=== PATIENT | male | born 2000 | race Caucasian/White ===

== ENCOUNTER 2022-09-15 06:30 | Emergency (ER) | payer SELFPAY ==
[~2022-09-15] VITALS: Ht 182.9 cm; Wt 90.0 kg
[2022-09-15 07:41] VITALS: BP 124/79
[2022-09-15 07:45] VITALS: BP 118/80
[2022-09-15 08:33] LABS: BASO% 0.5 % (0-3); EOS% 8.4 % (0-8); HEMATOCRIT 45.9 % (39.0-50.0); HEMOGLOBIN 14.8 g/dl (14.0-18.0); IMMATURE GRANULOCYTES 0.1 % (0.0-5.0); LYMPH% 30.9 % (15-41); MEAN CELL VOLUME 90.9 fL CALC (80.0-100.0); MEAN CORPUSCULAR HGB 29.3 pG CALC (26.0-32.0); MEAN CORPUSCULAR HGB CONC 32.2 g/dL CAL (32.0-36.0); MONO% 10.7 % (2-13); NEUT# 3.91 thou/uL (1.82-7.42); NEUT% 49.4 % (42-76); RED BLOOD COUNT 5.05 mill/uL (4.70-6.10); RED CELL DISTRI WIDTH 12.7 % (11.5-15.5)
[2022-09-15 08:46] LABS: ALBUMIN 4.5 g/dL (3.2-5.0); ALKALINE PHOSPHATASE 77 u/l (38-126); ANION GAP 9 (6-22 (CALC)); BUN 7 mg/dL (9-20); BUN/CREATININE RATIO 8 (12-20 (CALC)); CARBON DIOXIDE 27 mmol/l (22-30); CHLORIDE 107 mmol/l (95-108); CREATININE 0.8 mg/dL (0.7-1.3); GFR FOR AFR.AMER. > 60 ML/MIN (>=60 (CALC)); GFR OTHER RACES > 60 ML/MIN (>=60 (CALC)); LIPASE 261 u/l (23-300); SGOT/AST 25 u/l (17-59); SODIUM 138 mmol/l (137-146); TOTAL PROTEIN 7.3 g/dL (6.3-8.2)
[2022-09-15 08:49] LABS: POTASSIUM 5.3 mmol/l (3.5-5.1)
[2022-09-15 09:01] VITALS: BP 106/75
[2022-09-15 09:07] LABS: URINE BILIRUBIN - DIPSTICK NEGATIVE (NEGATIVE); URINE BLOOD DIPSTICK NEGATIVE (NEGATIVE); URINE COLOR YELLOW; URINE GLUCOSE - DIPSTICK NEGATIVE (NEGATIVE); URINE KETONE NEGATIVE (NEGATIVE); URINE LEUK ESTERASE NEGATIVE (NEGATIVE); URINE NITRITE - DIPSTICK NEGATIVE (Negative); URINE PH 6.5 (4.5-8.0); URINE PROTEIN - DIPSTICK NEGATIVE (NEG-TRACE); URINE UROBILINOGEN - DIPSTICK 0.2 E.U./dL (0.2)
[2022-09-15 09:18] VITALS: BP 117/70
[2022-09-15] MEDS ORDERED: PROTONIX40 M2 PO (09:24)
[2022-09-15] MEDS ORDERED: ZOFRAN4 MG/TAB PO (09:24)
[2022-09-15 09:46] VITALS: BP 134/66
== END 2022-09-15 09:55 | disposition home or self-care (01) | DRG 392 ==
LOC: ED 06:30
PROVIDERS: Family Medicine
DX: R10.9 Unspecified abdominal pain (principal); R11.2 Nausea with vomiting, unspecified; Z87.11 Personal history of peptic ulcer disease

== ENCOUNTER 2022-11-25 17:54 | Emergency (ER) | payer SELFPAY ==
[~2022-11-25] VITALS: Ht 177.8 cm; Wt 94.8 kg
[~2022-11-25 17:54] MED LIST: PROTONIX40 M2 PO; ZOFRAN4 MG/TAB PO
[2022-11-25 18:02] VITALS: BP 137/82
[2022-11-25 18:16] VITALS: BP 125/75
[2022-11-25] MEDS ORDERED: AMOXICILLIN500 M2 PO (18:18)
[2022-11-25] MEDS ORDERED: PREDNISONE50 MG PO (18:18)
[2022-11-25 18:31] VITALS: BP 125/75
== END 2022-11-25 18:36 | disposition home or self-care (01) | DRG 153 ==
LOC: ED 17:54
DX: J06.9 Acute upper respiratory infection, unspecified (principal)

== ENCOUNTER 2023-02-09 06:36 | Emergency (ER) | payer SELFPAY ==
[2023-02-09] VITALS (10 sets, daily range): BP systolic 99–164; BP diastolic 68–147
[~2023-02-09] VITALS: Ht 180.3 cm; Wt 94.0 kg
[~2023-02-09 06:36] MED LIST changes: +AMOXICILLIN500 M2 PO; +PREDNISONE50 MG PO
[2023-02-09 07:53] LABS: ALBUMIN 4.3 g/dL (3.2-5.0); ALKALINE PHOSPHATASE 65 u/l (38-126); AMYLASE 66 u/l (30-110); ANION GAP 12 (6-22 (CALC)); BUN 8 mg/dL (9-20); BUN/CREATININE RATIO 12 (12-20 (CALC)); CARBON DIOXIDE 24 mmol/l (22-30); CHLORIDE 107 mmol/l (95-108); CREATININE 0.7 mg/dL (0.7-1.3); GFR FOR AFR.AMER. > 60 ML/MIN (>=60 (CALC)); GFR OTHER RACES > 60 ML/MIN (>=60 (CALC)); POTASSIUM 4.5 mmol/l (3.5-5.1); SGOT/AST 23 u/l (17-59); SODIUM 139 mmol/l (137-146); TOTAL PROTEIN 7.3 g/dL (6.3-8.2)
[2023-02-09 08:11] LABS: BILIRUBIN, TOTAL 0.2 mg/dL (0.2-1.3)
[2023-02-09] MEDS ORDERED: PROTONIX40 MG PO (08:53)
== END 2023-02-09 09:21 | disposition home or self-care (01) | DRG 392 ==
LOC: ED 06:36
PROVIDERS: Family Medicine
DX: K29.70 Gastritis, unspecified, without bleeding (principal); Z87.11 Personal history of peptic ulcer disease; Z91.190 Patient's noncompliance with other medical treatment and regimen due to financial hardship
CPT/HCPCS: S0164

== ENCOUNTER 2023-08-08 21:04 | Emergency (ER) | payer SELFPAY ==
[~2023-08-08] VITALS: Ht 180.3 cm; Wt 94.5 kg
[~2023-08-08 21:04] MED LIST changes: +PROTONIX40 MG PO
[2023-08-08 21:25] VITALS: BP 117/76
[2023-08-08 21:30] VITALS: BP 118/64
[2023-08-08 21:48] LABS: BASO% 0.1 % (0-3); EOS% 0.8 % (0-8); HEMATOCRIT 41.3 % (39.0-50.0); HEMOGLOBIN 13.9 g/dl (14.0-18.0); IMMATURE GRANULOCYTES 0.1 % (0.0-5.0); MEAN CELL VOLUME 88.8 fL CALC (80.0-100.0); MEAN CORPUSCULAR HGB 29.9 pG CALC (26.0-32.0); MEAN CORPUSCULAR HGB CONC 33.7 g/dL CAL (32.0-36.0); MONO% 5.2 % (2-13); NEUT# 12.25 thou/uL (1.82-7.42); NEUT% 83.8 % (42-76); RED BLOOD COUNT 4.65 mill/uL (4.70-6.10)
[2023-08-08 22:26] LABS: ALBUMIN 4.8 g/dL (3.2-5.0); ALKALINE PHOSPHATASE 72 u/l (38-126); ANION GAP 11 (6-22 (CALC)); BILIRUBIN, TOTAL 0.3 mg/dL (0.2-1.3); BUN 10 mg/dL (9-20); BUN/CREATININE RATIO 15 (12-20 (CALC)); CARBON DIOXIDE 27 mmol/l (22-30); CHLORIDE 108 mmol/l (95-108); CREATININE 0.7 mg/dL (0.7-1.3); GFR FOR AFR.AMER. > 60 ML/MIN (>=60 (CALC)); GFR OTHER RACES > 60 ML/MIN (>=60 (CALC)); LIPASE 85 u/l (23-300); SGOT/AST 29 u/l (17-59); SODIUM 142 mmol/l (137-146); TOTAL PROTEIN 7.4 g/dL (6.3-8.2)
[2023-08-09 00:46] LABS: URINE BILIRUBIN - DIPSTICK Negative (NEGATIVE); URINE BLOOD DIPSTICK Negative (NEGATIVE); URINE GLUCOSE - DIPSTICK Negative (NEGATIVE); URINE KETONE Negative (NEGATIVE); URINE LEUK ESTERASE Negative (NEGATIVE); URINE NITRITE - DIPSTICK Negative (Negative); URINE PH 8.5 (4.5-8.0); URINE PROTEIN - DIPSTICK Negative (NEG-TRACE)
[2023-08-09 00:50] LABS: URINE COLOR Yellow
[2023-08-09] MEDS ORDERED: ERYTHROMYCIN250 M2 PO (03:42)
[2023-08-09 03:49] VITALS: BP 118/64
== END 2023-08-09 04:00 | disposition home or self-care (01) | DRG 392 ==
LOC: ED 21:04
PROVIDERS: Family Medicine
DX: K31.84 Gastroparesis (principal); Z87.11 Personal history of peptic ulcer disease

== ENCOUNTER 2024-01-12 06:24 | Emergency (ER) | payer BC ==
[~2024-01-12] VITALS: Ht 177.8 cm; Wt 90.0 kg
[~2024-01-12 06:24] MED LIST changes: +ERYTHROMYCIN250 M2 PO
[2024-01-12] MEDS ORDERED: ONDANSETRON 4 MG/TAB ODT PO ONE (06:50)
[2024-01-12 08:05] VITALS: BP 134/95
== END 2024-01-12 08:05 | disposition home or self-care (01) | DRG 392 ==
LOC: ED 06:24
DX: R11.2 Nausea with vomiting, unspecified (principal); R52 Pain, unspecified; Z20.822 Contact with and (suspected) exposure to COVID-19

== ENCOUNTER 2024-01-15 19:10 | Emergency (ER) | payer BC ==
[~2024-01-15] VITALS: Ht 177.8 cm; Wt 95.0 kg
[2024-01-15 20:10] VITALS: BP 132/73
[2024-01-15] MEDS ORDERED: IBUPROFEN 600 MG/TAB PO ONE (20:15)
[2024-01-15] MEDS ORDERED: ONDANSETRON 4 MG/TAB ODT PO ONE (20:15)
[2024-01-15] MEDS ORDERED: ACETAMINOPHEN 500 MG TAB PO ONE (20:15)
[2024-01-15 21:06] LABS: BASO% 0.1 % (0-3); EOS% 1.9 % (0-8); HEMATOCRIT 43.2 % (39.0-50.0); HEMOGLOBIN 14.2 g/dl (14.0-18.0); IMMATURE GRANULOCYTES 0.3 % (0.0-5.0); LYMPH% 6.6 % (15-41); MEAN CELL VOLUME 89.6 fL CALC (80.0-100.0); MEAN CORPUSCULAR HGB 29.5 pG CALC (26.0-32.0); MEAN CORPUSCULAR HGB CONC 32.9 g/dL CAL (32.0-36.0); MONO% 16.9 % (2-13); NEUT# 5.4 thou/uL (1.82-7.42); NEUT% 74.2 % (42-76); RED BLOOD COUNT 4.82 mill/uL (4.70-6.10)
[2024-01-15 21:36] VITALS: BP 132/73
== END 2024-01-15 21:39 | disposition home or self-care (01) | DRG 179 ==
LOC: ED 19:10
PROVIDERS: Family Medicine
DX: U07.1 COVID-19 (principal); R50.9 Fever, unspecified; M79.10 Myalgia, unspecified site; R09.89 Other specified symptoms and signs involving the circulatory and respiratory systems; R52 Pain, unspecified

== ENCOUNTER 2024-01-25 06:52 | Emergency (ER) | payer OTHER, BC ==
[~2024-01-25] VITALS: Ht 177.8 cm; Wt 95.0 kg
[2024-01-25 06:56] VITALS: BP 150/122
[2024-01-25 06:58] VITALS: BP 134/79
[2024-01-25 07:00] VITALS: BP 119/92
[2024-01-25] MEDS ORDERED: LIDOcaine HCl 1% (Local Anesth.) 20 ML VIAL STI STA (07:02)
[2024-01-25] MEDS ORDERED: POVIDONE IODINE 0.5 OZ/BTL TOP ONE (07:05)
[2024-01-25] MEDS ORDERED: Diph, Acellular Pertussis, Tet 0.5 ML/VIAL (Tdap) SDV IM ONE (07:05)
[2024-01-25] MEDS ORDERED: CEPHALEXIN500 M1 PO (07:08)
== END 2024-01-25 07:41 | disposition home or self-care (01) | DRG 605 ==
LOC: ED 06:52
PROC: 0HQGXZZ Repair Left Hand Skin, External Approach (ICD-10-PCS; principal; 2024-01-25)
DX: S61.412A Laceration without foreign body of left hand, initial encounter (principal); W26.9XXA Contact with unspecified sharp object(s), initial encounter; Y93.89 Activity, other specified; Y99.0 Civilian activity done for income or pay

== ENCOUNTER 2024-06-27 03:53 | Emergency (ER) | payer BC ==
[~2024-06-27] VITALS: Ht 177.8 cm; Wt 97.0 kg
[2024-06-27] VITALS (9 sets, daily range): BP systolic 115–144; BP diastolic 65–81
[~2024-06-27 03:53] MED LIST changes: +CEPHALEXIN500 M1 PO
[2024-06-27] MEDS ORDERED: KETOROLAC TROMETHAMINE 30 MG/ML SDV IV ONE (04:15)
[2024-06-27] MEDS ORDERED: SODIUM CHLORIDE 0.9% 1,000 ML IV ONE (04:15)
[2024-06-27] MEDS ORDERED: DICYCLOMINE HCL 20 MG/2 ML VIAL IM ONE (04:15)
[2024-06-27] MEDS ORDERED: FAMOTIDINE 10MG/ML 2ML SDV IV ONE (04:15)
[2024-06-27] MEDS ORDERED: ONDANSETRON HCl 4 MG/2 ML SDV IV ONE (04:15)
[2024-06-27 04:40] LABS: BASO% 0.4 % (0-3); EOS% 3.6 % (0-8); HEMATOCRIT 42.1 % (39.0-50.0); IMMATURE GRANULOCYTES 0.1 % (0.0-5.0); MEAN CELL VOLUME 87.5 fL CALC (80.0-100.0); MEAN CORPUSCULAR HGB 29.1 pG CALC (26.0-32.0); MEAN CORPUSCULAR HGB CONC 33.3 g/dL CAL (32.0-36.0); MONO% 7.9 % (2-13); NEUT# 2.52 thou/uL (1.82-7.42); NEUT% 29.8 % (42-76); RED BLOOD COUNT 4.81 mill/uL (4.70-6.10)
[2024-06-27 04:54] LABS: ALBUMIN 4.3 g/dL (3.2-5.0); BILIRUBIN, TOTAL 0.5 mg/dL (0.2-1.3); CREATININE 0.7 mg/dL (0.7-1.3); POTASSIUM 3.5 mmol/l (3.5-5.1); TOTAL PROTEIN 7.3 g/dL (6.3-8.2)
[2024-06-27 05:15] LABS: LYMPH% 58.2 % (15-41)
[2024-06-27] MEDS ORDERED: STOMACH MED (05:19)
[2024-06-27] MEDS ORDERED: IPRATROPIUM-Albuterol 0.5MG-2.5MG/3 ML NEB ONE ×2 (07:20)
[2024-06-27] MEDS ORDERED: VENTOLIN HFA108 MCG PO (07:54)
== END 2024-06-27 08:40 | disposition home or self-care (01) | DRG 392 ==
LOC: ED 03:53
PROVIDERS: Emergency Medicine
DX: R10.9 Unspecified abdominal pain (principal); R11.2 Nausea with vomiting, unspecified; J06.9 Acute upper respiratory infection, unspecified

== ENCOUNTER 2024-07-12 10:00 | Emergency (ER) | payer BC ==
[2024-07-12] VITALS (8 sets, daily range): BP systolic 111–132; BP diastolic 61–87
[~2024-07-12] VITALS: Ht 177.8 cm; Wt 99.4 kg
[~2024-07-12 10:00] MED LIST changes: +STOMACH MED; +VENTOLIN HFA108 MCG PO
[2024-07-12 10:37] LABS: HEMATOCRIT 42.6 % (39.0-50.0); HEMOGLOBIN 13.7 g/dl (14.0-18.0); IMMATURE GRANULOCYTES 0.2 % (0.0-5.0); MEAN CELL VOLUME 90.3 fL CALC (80.0-100.0); MEAN CORPUSCULAR HGB CONC 32.2 g/dL CAL (32.0-36.0); RED BLOOD COUNT 4.72 mill/uL (4.70-6.10); RED CELL DISTRI WIDTH 13.3 % (11.5-15.5)
[2024-07-12 10:38] LABS: MANUAL DIFFERENTIAL YES; PLATELET COUNT 226 thou/uL (130-400)
[2024-07-12 10:51] LABS: ALBUMIN 4.6 g/dL (3.2-5.0); BILIRUBIN, TOTAL 0.5 mg/dL (0.2-1.3); CREATININE 0.8 mg/dL (0.7-1.3); POTASSIUM 4.2 mmol/l (3.5-5.1); TOTAL PROTEIN 8.1 g/dL (6.3-8.2)
[2024-07-12] MEDS ORDERED: SODIUM CHLORIDE 0.9% 1,000 ML IV ONE (11:05)
[2024-07-12] MEDS ORDERED: Pantoprazole Sodium 40 MG VIAL (Protonix) IV ONE (11:05)
[2024-07-12] MEDS ORDERED: ONDANSETRON HCl 4 MG/2 ML SDV IV ONE (11:05)
[2024-07-12 11:08] LABS: BAND 2 % (0-8)
[2024-07-12 12:48] LABS: URINE BILIRUBIN - DIPSTICK Negative (NEGATIVE); URINE BLOOD DIPSTICK Negative (NEGATIVE); URINE COLOR Yellow; URINE GLUCOSE - DIPSTICK Negative (NEGATIVE); URINE KETONE Negative (NEGATIVE); URINE LEUK ESTERASE Negative (NEGATIVE); URINE NITRITE - DIPSTICK Negative (Negative); URINE PH 8.5 (4.5-8.0); URINE PROTEIN - DIPSTICK Negative (NEG-TRACE); URINE SPECIFIC GRAVITY 1.015
== END 2024-07-12 13:35 | disposition home or self-care (01) | DRG 379 ==
LOC: ED 10:00
PROVIDERS: Family Medicine
DX: K92.0 Hematemesis (principal); R10.13 Epigastric pain; K21.9 Gastro-esophageal reflux disease without esophagitis; Z87.11 Personal history of peptic ulcer disease
CPT/HCPCS: J2405; J2470; Q9967